=== PATIENT | male | born 1965 | race Caucasian/White ===

== ENCOUNTER 2020-02-16 11:58 | Emergency (ER) | payer OTHER, SELFPAY ==
--- NOTE | ~2020-02-16 | XR_ITS ---
EXAMINATION: XR hand RT min 3V DATE: 02/16/2020 12:18 INDICATION: Right hand injury. TECHNIQUE: 3 views of right hand were obtained. COMPARISON: None. FINDINGS: Bone alignment is normal. No fracture. There is mild osteoarthritis of first-third metacarp ophalangeal joints, first interphalangeal joint, fifth proximal interphalangeal joint, and second-fif th distal interphalangeal joints. IMPRESSION: 1. Mild polyarticular osteoarthritis. Reviewed, dictated and finalized at location A. RISK AND ASSURANCE MANAGER
[2020-02-16 12:21] VITALS: BP 141/85; PULSE 87; RESP 18; TEMP 36.3; O2SAT 99
--- NOTE | 2020-02-16 12:21 | ED.UPPEXIN ---
HPI - Extremity Injury (Upper) General Chief Complaint: Extremity Injury, Upper Stated Complaint: R/hand pinky Time Seen by Provider: 02/16/20 12:21 Source: patient Mode of arrival: ambulatory Limitations: no limitations History of Present Illness HPI narrative: Yanick Limon is a 54 yo male with PMH of diabetes who injured his right fifth finger dog away from him anticoagulation and his finger got caught in chain. This happened yesterday and since then has pain in the proximal digit with any kind of finger movement, strength when tries to open a jar History of diabetes that is somewhat uncontrolled; been changing his medications around, A1c is 8.1 Related Data Home Medications Medication Instructions Recorded Confirmed dapagliflozin [Farxiga] 10 mg DAILY 02/16/20 02/16/20 metformin 2,000 mg PO DAILY 02/16/20 02/16/20 rosuvastatin 20 mg DAILY 02/16/20 02/16/20 sitagliptin [Januvia] 100 mg DAILY 02/16/20 02/16/20 Allergies Allergy/AdvReac Type Severity Reaction Status Date / Time No Known Allergies Allergy Verified 02/16/20 12:11 Review of Systems Review of Systems: Narrative: CONSTITUTIONAL: Denies fever, chills, sweats. EYES: Denies visual changes, redness, discharge. ENT: Denies rhinorrhea, congestion, sore throat, otalgia. CARDIOVASCULAR: Denies chest pain, palpitations, edema. RESPIRATORY: Denies dyspnea, wheezing, cough GASTROINTESTINAL: Denies abdominal pain, nausea, vomiting, diarrhea. GENITOURINARY: Denies dysuria, hematuria, abnormal discharge SKIN: Denies rash or itching. NEUROLOGIC: Denies numbness, or focal weakness. PSYCHIATRIC: Denies anxiety or depression. Right hand fifth finger pain and swelling PMFSH Past Medical History Medical History (Updated 02/16/20 @ 12:37 by Kathie Muhammad CNP) Diabetes Family History Family History Other Diabetes mellitus Social History Social History (Updated 02/16/20 @ 12:30 by Kathie Muhammad CNP) Alcohol intake: current Gender identity (if verbalized by the patient): Male Comments At time of signature, I agree with nursing past medical, surgical, social and family history. There is no relevant family history pertinent to the presenting complaint. Patient's blood pressure is elevated at the visit; doctor regularly because of myelitis diabetes medication is not medicated for her blood pressure may be due to pain or anxiety of Exam Narrative: Exam Narrative: GENERAL: This is a well-nourished, well-developed patient, in mild distress. HEAD: normocephalic, atraumatic. EYES: Sclera clear/white. Vision is grossly intact. EARS: External ears normal. Hearing grossly intact. NOSE: External nose normal without nasal discharge, nares without redness, no rhinorrhea. THROAT: Mucous membranes moist, NECK: Neck supple, non-tender CARDIOVASCULAR: Regular rate and rhythm without murmurs, gallops, or rubs. RESPIRATORY: Clear to auscultation. Breath sounds equal bilaterally. No wheezes, rales, or rhonchi. GASTROINTESTINAL: Abdomen soft, non-tender, SKIN: warm, intact with no suspicious lesions or rash, good texture and turgor. NEURO: awake, alert, and oriented to person, place and time. There were no obvious focal neurologic abnormalities. Steady gait EXTREMITIES: Normal range of motion. Right hand pain with anterior finger movement, difficulty climbing fifth finger into the fourth anterior left finger strength, finger is warm to touch good radial pulse on able to do oppositional finger touch BACK: Nontender without deformity Course Course Emergency Course: Patient here with injury to right fifth finger after getting caught in a dog chain yesterday Shows no fracture or dislocation but appears to be a tendon injury Patient placed in immobilization with a splint by RN tramadol given for pain Discussed his A1c and blood sugar elevation and frequent PCP visits Follow-up with PCP or orthopedist front counter clerk Vi
== END 2020-02-16 12:46 | disposition home or self-care (01) ==
PROVIDERS: Emergency Provider Nurse Practitioner
DX: S63.656A Sprain of metacarpophalangeal joint of right little finger, initial encounter (principal); X58.XXXA Exposure to other specified factors, initial encounter; E11.9 Type 2 diabetes mellitus without complications
CPT/HCPCS: 29130; 73130; 99213; G0463